=== PATIENT | female | born 1980 | race Caucasian/White ===

== ENCOUNTER 2022-04-18 06:35 | Emergency (ER) | payer MEDICAID ==
[~2022-04-18] VITALS: Ht 154.9 cm; Wt 81.2 kg
[2022-04-18 06:45] VITALS: BP 160/90
--- NOTE | 2022-04-18 06:45 | NUR ---
TO BED AMBULATORY
--- NOTE | 2022-04-18 07:07 | NUR ---
Patient resting in bed, A/Ox4 chest rise and fall symmetrical, no s/s of distress, patient on monitor.
--- NOTE | 2022-04-18 07:28 | NUR ---
Change of shift report given to AM Shift Nurse Giles RAMIREZ. AM Shift Nurse Giles RN verbalized understanding of report, no further questions.
[2022-04-18] MEDS ORDERED: ACETAMINOPHEN EXTRA STRENGTH 500 MG TAB PO ONE (07:55)
[2022-04-18] MEDS ORDERED: ACETAMINOPHEN EXTRA STRENGTH 500 MG TAB ONE (09:29)
[2022-04-18] MEDS ORDERED: ACET-10509 PO (09:38)
--- NOTE | 2022-04-18 09:45 | NUR ---
LUIS WRAP APPLIED TO L ELBOW
== END 2022-04-18 10:06 | disposition home or self-care (01) ==
LOC: MED 06:35
DX: S53.492A Other sprain of left elbow, initial encounter (principal); S90.31XA Contusion of right foot, initial encounter; M25.512 Pain in left shoulder; M25.532 Pain in left wrist; W18.2XXA Fall in (into) shower or empty bathtub, initial encounter; Y93.89 Activity, other specified; Y92.89 Other specified places as the place of occurrence of the external cause; Y99.8 Other external cause status
CPT/HCPCS: 73030; 73080; 73090; 73110; 73630; 93005; 99284; Q0092

== ENCOUNTER 2022-07-26 23:26 | Emergency (ER) | payer MEDICAID ==
[~2022-07-26] VITALS: Ht 154.9 cm; Wt 77.1 kg
[~2022-07-26 23:26] MED LIST: ACET-10509 PO
[2022-07-26 23:30] VITALS: BP 159/100
--- NOTE | 2022-07-26 23:33 | NUR ---
TOP LOBBY A/W BED AMBULATORY
--- NOTE | 2022-07-26 23:49 | NUR ---
PT TO BED #6 Addendum: 07/26/22 at 2953 by YESENIAJ BED #9
--- NOTE | 2022-07-26 23:50 | NUR ---
PT ON BED 9, A/OX4. CHEST RISING AND FALL SYMMETRICAL. WITH C/O ABDOMINAL PAIN WITH SCALE OF 10/10. ATTACHED TO MONITOR
--- NOTE | 2022-07-27 | NUR ---
DR. AMADOR EXAMINING THE PATIENT
[2022-07-27] MEDS ORDERED: DICYCLOMINE 20 MG/2 ML VIAL IM ONE ×2 (00:10→00:45)
--- NOTE | 2022-07-27 01:00 | NUR ---
Pt taken to CT
[2022-07-27 01:08] LABS: BASOPHILS # (AUTO) 0.1 K/uL (0.00-0.22); BASOPHILS % (AUTO) 1.8 % (0.0-2.0); EOSINOPHILS # (AUTO) 0.3 K/uL (0-0.4); EOSINOPHILS % (AUTO) 4.2 % (0.0-4.0); HEMATOCRIT 35.1 % (36-48); HEMOGLOBIN 11.6 g/dL (12.0-16.0); LYMPHOCYTES # (AUTO) 2.1 K/uL (2.5-16.5); LYMPHOCYTES % (AUTO) 32.1 % (20.5-51.1); MEAN CORPUSCULAR HEMOGLOBIN 28 pg (27-31); MEAN CORPUSCULAR HGB CONC 33 g/dL (33-37); MEAN CORPUSCULAR VOLUME 85.4 fL (80-94); MONOCYTES # (AUTO) 0.7 K/uL (0.8-1.0); MONOCYTES % (AUTO) 10.5 % (1.7-9.3); NEUTROPHILS # (AUTO) 3.3 K/uL (1.8-7.7); NEUTROPHILS % (AUTO) 51.4 % (42.2-75.2); PLATELET COUNT (AUTO) 246 K/uL (140-450); RED BLOOD CELL COUNT(AUTO) 4.11 MIL/uL (4.20-5.40); RED CELL DISTRIBUTION WIDTH 14.5 % (11.6-13.7); WHITE BLOOD COUNT (AUTO) 6.4 K/uL (4.8-10.8)
--- NOTE | 2022-07-27 01:15 | NUR ---
Pt returned from CT.
[2022-07-27 01:19] LABS: ALBUMIN 3.5 g/dL (3.4-5.0); ANION GAP 13.3 (8-16); CARBON DIOXIDE 27.5 mmol/L (21-32); CREATININE 0.8 mg/dL (0.6-1.3); POTASSIUM 3.8 mmol/L (3.5-5.1); TOTAL BILIRUBIN 0.3 mg/dL (0.0-1.0)
[2022-07-27 03:28] LABS: APPEARANCE,URINE SL CLOUDY (CLEAR); BILIRUBIN,URINE NEGATIVE (NEGATIVE); BLOOD, URINE 3+ (NEGATIVE); COLOR,URINE ORANGE (YELLOW); LEUKOCYTE ESTERASE ,URINE NEGATIVE (NEGATIVE); NITRITE, URINE NEGATIVE (NEGATIVE); UGLUCOSE NEGATIVE (NEGATIVE)
--- NOTE | 2022-07-27 03:38 | NUR ---
PT ASKED FOR AN UPDATE OF HER CONDITION. PT. INFORMED OF PENDING DIAGNOSTIC RESULTS. DR. AMADOR MADE AWARE OF THE QUESTION OF THE PATIENT
[2022-07-27 03:40] LABS: RBC,URINE 20-50 /HPF (0-5)
--- NOTE | 2022-07-27 04:00 | NUR ---
DR. AMADOR AT BEDSIDE UPDATING PATIENT REGARDING HER CONDITION. PATIENT STATED THAT SHE WILL GO HOME. DR. AMADOR PROVIDED HEALTH EDUCATION TO THE PATIENT AND THE RISK OF NOT CONTINUING THE TREATMENT.
[2022-07-27 04:11] LABS: BARBITURATE, URINE NEGATIVE ng/ml (NEG <=200); BENZODIAZEPINE, URINE NEGATIVE ng/mL (NEG <=200); CANNABINOID, URINE NEGATIVE ng/mL (NEG <=50); COCAINE, URINE NEGATIVE ng/mL (NEG <=300); OPIATE, URINE NEGATIVE ng/mL (NEG <=2000); PHENCYCLIDINE SCREEN,URINE NEGATIVE ng/mL (NEG <=25)
--- NOTE | 2022-07-27 04:26 | NUR ---
PT STATED THAT SHE WILL CONTINUE THE TREATMENT. DR. AMADOR MADE AWARE.
[2022-07-27] MEDS ORDERED: BEN10 PO (04:52)
[2022-07-27] MEDS ORDERED: NA P135N RC (04:52)
[2022-07-27 05:04] VITALS: BP 141/84
--- NOTE | 2022-07-27 05:04 | NUR ---
Note devon in ED - 07/27/22 at 0509 by [email or web address] Patient does not wish to proceed with medical care recommended by DR. AMADOR. Patient given information related to possible complications, up to and including , which could occur as a result of leaving hospital at this time. Patient verbalizes understanding of risks involved leaving against medical advice. Patient has signed AMA form.
== END 2022-07-27 05:04 | disposition home or self-care (01) ==
LOC: MED 23:26
DX: K59.00 Constipation, unspecified (principal); Z88.5 Allergy status to narcotic agent; Z98.890 Other specified postprocedural states
CPT/HCPCS: 36415; 74018; 74176; 80053; 80305; 81001; 81025; 83690; 84703; 85025; 87086; 96372; 99285; J0500; Q0092